=== PATIENT | female | born 1985 | race Native Hawaiian/Other Pacific Islander ===

== ENCOUNTER 2018-09-11 07:59 | Day surgery (SDC) | payer BC ==
[2018-09-11 08:44] LABS: PLATELET COUNT 277 K/uL (152-353)
[2018-09-11 09:06] LABS: POTASSIUM 4.4 mmol/L (3.6-5.2)
== END 2018-09-11 16:02 | disposition home or self-care (01) ==
LOC: OR 07:59
PROVIDERS: Student in an Organized Health Care Education/Training Program
PROC: 0FT44ZZ Resection of Gallbladder, Percutaneous Endoscopic Approach (ICD-10-PCS; principal; 2018-09-11)
DX: K80.10 Calculus of gallbladder with chronic cholecystitis without obstruction (principal)
CPT/HCPCS: 80053; 81025; 85027; 87502; J0132; J0330; J0461; J1100; J1170; J1885; J2001; J2250; J2405; J2704; J2710; J2765; J3010; J3490

== ENCOUNTER 2021-06-08 18:28 | Outpatient (CLI) | payer BC | END 2021-06-08 20:10 | disposition home or self-care (01) | LOC: CT 18:28 | PROVIDERS: ATTEND Nurse Practitioner Family | DX: N20.2 Calculus of kidney with calculus of ureter (principal) ==